=== PATIENT | male | born 1970 | race Caucasian/White ===

== ENCOUNTER 2020-05-12 20:28 | Emergency (ER) | payer OTHER ==
[~2020-05-12] VITALS: Ht 172.7 cm; Wt 81.8 kg
[2020-05-12 20:41] VITALS: Ht 172.7 cm; Wt 81.8 kg
[2020-05-12] MEDS ORDERED: FLOMAX0.4 MG PO ×2 (20:42→22:22)
[2020-05-12] MEDS ORDERED: VYVANSE70 MG PO (20:42)
[2020-05-12] MEDS ORDERED: SYNTHROID175 MCG PO (20:43)
[2020-05-12 21:09] LABS: BASOPHILS 0.3 % (0-2); EOSINOPHILS 0.5 % (0-7); HEMATOCRIT 43.6 % (42.0-54.0); HEMOGLOBIN 14.4 g/dL (13.5-17.5); IMMATURE GRANULOCYTES 0.2 % (0-5); LYMPHOCYTES 7.4 % (15-50); MCV 90.8 fL (80.0-100.0); MEAN PLATELET VOLUME 8.9 fL (7.4-10.4); MONOCYTES 5.4 % (2-11); NEUTROPHILS 86.2 % (40-80); PLATELET COUNT 325 10x3/uL (130-400); RDW 13.6 % (11.5-14.5); WBC 12.9 10x3/uL (4.8-10.8)
[2020-05-12 21:20] LABS: ANION GAP 10.4 mmol/L (8-16); CALCIUM 8.7 mg/dL (8.5-10.1); CARBON DIOXIDE 28.6 mmol/L (21.0-32.0); CREATININE - SERUM 1.8 mg/dL (0.6-1.3)
[2020-05-12 21:26] LABS: ALBUMIN 3.9 g/dL (3.4-5.0); BILIRUBIN - TOTAL 0.41 mg/dL (0.2-1.3)
[2020-05-12] MEDS ORDERED: HYDROCODON-ACE1 EA10 PO (22:22)
[2020-05-12] MEDS ORDERED: ZOFRAN ODT4 MG/UDTAB PO (22:22)
[2020-05-12 22:29] VITALS: BP 156/117
[2020-05-12 22:43] LABS: NITRITE NEGATIVE (NEGATIVE)
[2020-05-12 22:44] LABS: BILIRUBIN NEGATIVE (NEGATIVE); KETONE NEGATIVE (NEGATIVE); UROBILINOGEN NORMAL mg/dL (< 2)
== END 2020-05-12 23:22 | disposition home or self-care (01) ==
LOC: D.ER 20:28
PROVIDERS: Emergency Medicine
DX: N13.2 Hydronephrosis with renal and ureteral calculous obstruction (principal); R10.9 Unspecified abdominal pain